=== PATIENT | female | born 1990 ===

== ENCOUNTER 2025-04-15 14:15 | Emergency (ER) | payer OTHER ==
[~2025-04-15] VITALS: Ht 167.6 cm; Wt 112.3 kg
[2025-04-15] MEDS ORDERED: LAMICTAL25 MG PO (16:37)
[2025-04-15] MEDS ORDERED: ZOLPIDEM TARTRAT5 MG PO (16:37)
[2025-04-15] MEDS ORDERED: HYDROXYZINE HCL25 MG PO (16:37)
[2025-04-15] MEDS ORDERED: ABILIFY5 MG PO (16:37)
[2025-04-15] MEDS ORDERED: OLANZapine 10 MG TAB PO ONE (16:45)
== END 2025-04-15 17:00 | disposition home or self-care (01) ==
LOC: ED 14:15
DX: F31.9 Bipolar disorder, unspecified (principal); Z79.899 Other long term (current) drug therapy
CPT/HCPCS: 99283; A9270; Q0177